=== PATIENT | male | born 1975 | race Caucasian/White ===

== ENCOUNTER → 2018-04-07 09:11 | Outpatient (CLI) | payer OTHER, SELFPAY ==
--- NOTE | 2018-04-07 | DI.MRI.S_ITS ---
PROCEDURE: MR KNEE RT WO CON INDICATIONS: KNEE INSTABILITY TECHNIQUE: Noncontrast sagittal PD fast spin echo and T2 fast spin echo with fat saturation, sagittal 3-D FLASH with fat saturation; coronal T1 spin echo and PD fast spin echo with fat saturation, and axial PD fast spin echo with fat saturation through the knee. COMPARISON: None. FINDINGS: Image quality: Excellent. Menisci: There is complex oblique tear involving posterior horn of medial meniscus extending to the inferior articulating surface. No evidence of focal lateral meniscal tear is seen. The meniscal root ligaments appear intact. Cruciate ligaments: The anterior and posterior cruciate ligaments appear intact. Medial structures: There is low-grade MCL sprain. No evidence of MCL tear. The posterior oblique ligament, semimembranosus tendon insertions, oblique popliteal ligament, and meniscocapsular junction appear intact. Visualized portions of the pes anserinus tendons appear normal. No abnormal bursal fluid. Lateral structures: The lateral collateral ligament, long and short heads of the biceps femoris tendon appear intact. The popliteus tendon appears normal; the popliteofibular ligament appears intact. The posterosuperior and anteroinferior popliteomeniscal fascicles appear intact. The arcuate and fabellofibular ligaments appear intact, on either side of the lateral inferior geniculate artery. Iliotibial band appears normal. Anterior structures: The quadriceps and patellar tendons appear intact. Patellar alignment is normal. No femoral trochlear dysplasia or ventral trochlear prominence. No edema in the infrapatellar fat pad. Bones and cartilage: There is marrow edema along periphery of medial femoral condyle weight-bearing portion and the medial periphery of medial tibial plateau. No discrete fracture line is identified. Articulating cartilages are grossly intact. Joint space: There is small amount of joint fluid, and no gross loose body. Elongated popliteal cyst is seen and measures 2.7 x 1.1 x 3.3 cm in size.. Normal appearing synovial plicae are incidentally noted. IMPRESSION: 1. Suggestion of bony contusion involving medial periphery of medial femoral condyle and medial tibial plateau. No gross fracture or dislocation. Small amount of joint fluid. Elongated small popliteal cyst. 2. Suggestion of complex tear involving posterior horn of medial meniscus extending to inferior articulating surface. No focal lateral meniscal tear. 3. Cruciate ligaments are intact. Low grade MCL sprain. Dictated by: Manjeet Richards M.D. on 04/07/2018 at 11:00 Approved by: Manjeet Richards M.D. on 04/07/2018 at 11:07
== END ==
PROVIDERS: Visit Provider Family Medicine
DX: S83.411A Sprain of medial collateral ligament of right knee, initial encounter (principal); M71.21 Synovial cyst of popliteal space [Baker], right knee
CPT/HCPCS: 73721